=== PATIENT | female | born 1990 | race Caucasian/White ===

== ENCOUNTER 2016-12-05 23:16 | Emergency (ER) | payer BC ==
[2016-12-05 23:39] VITALS: BP 94/57; PULSE 79; TEMP 98.7; BMI 18.5
--- NOTE | 2016-12-05 23:47 | PDOC ---
History of Present Illness <Liz Healy - Last Filed: 12/06/16 00:00> - General History Source: Patient Exam Limitations: No Limitations - History of Present Illness Initial Comments: 12/06/16 00:12 The patient is a 26-year-old female, with no significant past medical history, who presents to the ED with bilateral ear pain. Pt states that the pain is worse in her right ear. A few days ago pt noted right ear was bleeding but that has now resolved. She denies any recent injury or swimming. She does report that she cleans her ears with Q-tips. Pt reports bilateral ear pressure. Pt denies any fever, chills, or cough. <Emily Suarez - Last Filed: 12/06/16 00:20> - General Chief Complaint: Ear Problem Stated Complaint: EAR PROBLEM Time Seen by Provider: 12/05/16 23:36 Past History - Psycho/Social/Smoking Cessation Hx Suicidal Ideation: No Smoking History: Never smoked Have you smoked in the past 12 months: No Information on smoking cessation initiated: No Hx Alcohol Use: No Drug/Substance Use Hx: No <Liz Healy - Last Filed: 12/06/16 00:00> <Emily Suarez - Last Filed: 12/06/16 00:20> - Past Medical History Allergies/Adverse Reactions: Allergies Allergy/AdvReac Type Severity Reaction Status Date / Time No Known Allergies Allergy Verified 12/05/16 23:34 Home Medications: Ambulatory Orders Azithromycin [Zithromax -] 250 mg PO UTDICT #6 tab 12/05/16 Review of Systems - Review of Systems Able to Perform ROS?: Yes Comments:: 12/06/16 00:13 GENERAL/CONSTITUTIONAL: No fever or chills. No weakness. HEAD, EYES, EARS, NOSE AND THROAT: No change in vision. No sore throat. (+) bilateral ear pain/pressure CARDIOVASCULAR: No chest pain or shortness of breath. RESPIRATORY: No cough, wheezing, or hemoptysis. GASTROINTESTINAL: No nausea, vomiting, diarrhea or constipation. GENITOURINARY: No dysuria, frequency, or change in urination. MUSCULOSKELETAL: No joint or muscle swelling or pain. No neck or back pain. SKIN: No rash NEUROLOGIC: No headache, vertigo, loss of consciousness, or change in strength/ sensation. ENDOCRINE: No increased thirst. No abnormal weight change. HEMATOLOGIC/LYMPHATIC: No anemia, easy bleeding, or history of blood clots. ALLERGIC/IMMUNOLOGIC: No hives or skin allergy. <Emily Suarez - Last Filed: 12/06/16 00:20> *Physical Exam - Vital Signs Last Vital Signs Temp Pulse Resp BP Pulse Ox 98.7 F 79 14 94/57 96 12/05/16 23:34 12/05/16 23:34 12/05/16 23:34 12/05/16 23:34 12/05/16 23:34 <Liz Healy - Last Filed: 12/06/16 00:00> - Vital Signs Last Vital Signs Temp Pulse Resp BP Pulse Ox 98.7 F 79 14 94/57 96 12/05/16 23:34 12/05/16 23:34 12/05/16 23:34 12/05/16 23:34 12/05/16 23:34 - Physical Exam Comments: 12/06/16 00:14 GENERAL: Awake, alert, and fully oriented, in no acute distress HEAD: No signs of trauma ENT: nares patent, oropharynx clear. TM EXAM: Left TM is normal in appearance. +Right TM- bulla to the 6 o'clock position with clear effusion. Superior portion of EAC is erythematous. EYES: PERRLA, EOMI, sclera anicteric, conjunctiva clear without exudates. Moist mucosa. NECK: Normal ROM, supple, no lymphadenopathy, JVD, or masses LUNGS: Breath sounds equal, clear to auscultation bilaterally. No wheezes, and no crackles HEART: Regular rate and rhythm, normal S1 and S2, no murmurs, rubs or gallops NEUROLOGICAL: Cranial nerves II through XII grossly intact. Normal speech, normal gait SKIN: Warm, Dry, normal turgor, no rashes or lesions noted <Emily Suarez - Last Filed: 12/06/16 00:20> *DC/Admit/Observation/Transfer - Discharge Dispostion Admit: No <Liz Healy - Last Filed: 12/06/16 00:00> - Attestations Scribe Attestion: 12/06/16 00:20 Documentation prepared by Emily Suarez, acting as medical assistant per diem for Liz Healy MD. <Emily Suarez - Last Filed: 12/06/16 00:20> Diagnosis at time of Disposition: Bullous myringitis of right ear - Discharge Dispostion Disposition: HOME Condition at time of disposition: Stable - Prescriptions Prescriptions: Azithromycin [Zithromax -] 250 mg PO UTDICT #6 tab - Referrals Referrals: Tawana Tilley [Primary Care Provider] - - Patient Instructions Printed Discharge Instructions: DI for Ear Pain-Adult
== END 2016-12-06 00:35 | disposition home or self-care (01) ==
LOC: JER 23:16
DX: H73.011 Bullous myringitis, right ear (principal)
CPT/HCPCS: 84703; 99281-25

== ENCOUNTER 2017-09-21 09:20 | Emergency (ER) | payer BC, OTHER ==
[2017-09-21 09:26] VITALS: BP 123/65; PULSE 73; TEMP 97.5; BMI 19.1
--- NOTE | 2017-09-21 09:52 | PDOC ---
History of Present Illness - General Chief Complaint: Pain Stated Complaint: CHEST PRESSURE/anxious Time Seen by Provider: 09/21/17 09:36 History Source: Patient Exam Limitations: No Limitations - History of Present Illness Initial Comments: 09/21/17 09:46 27 yr female history of depression on Prozac c/o chest pain [place] the train. Pt denies nausea no shortness of breath no fever, has dry cough. Pt states she started to feel anxious after she started having the chest pain. Past History - Past Medical History Allergies/Adverse Reactions: Allergies Allergy/AdvReac Type Severity Reaction Status Date / Time No Known Allergies Allergy Verified 09/21/17 09:26 Home Medications: Ambulatory Orders Fluoxetine HCl [Prozac] 20 mg PO ASDIR 09/21/17 COPD: No Seizures: Yes (anxiety,drepression) - Surgical History Appendectomy: Yes - Suicide/Smoking/Psychosocial Hx Smoking History: Never smoked Have you smoked in the past 12 months: No Information on smoking cessation initiated: No Hx Alcohol Use: No Drug/Substance Use Hx: No Substance Use Type: None Review of Systems - Review of Systems Able to Perform ROS?: Yes Is the patient limited [place]ian proficient: No Constitutional: No: Symptoms Reported HEENTM: No: Symptoms Reported Respiratory: No: Symptoms reported Cardiac (ROS): Yes: Symptoms Reported, Chest Pain ABD/GI: Yes: Indigestion. No: Symptoms Reported Musculoskeletal: No: Symptoms Reported Psychiatric: Yes: Anxiety, Depression. No: Frequent Crying, Stressors, Mood Swings, Change in Appetite *Physical Exam - Vital Signs Last Vital Signs Temp Pulse Resp BP Pulse Ox 97.5 F L 73 18 123/65 98 09/21/17 09:23 09/21/17 09:23 09/21/17 09:23 09/21/17 09:23 09/21/17 09:23 - Physical Exam General Appearance: Yes: Nourished, Appropriately Dressed HEENT: positive: EOMI, [place], TMs Normal, Pharynx Normal. negative: Pharyngeal Erythema, Tonsillar Exudate, Tonsillar Erythema Neck: positive: Supple. negative: Tender, Lymphadenopathy (R), Lymphadenopathy (L) Respiratory/Chest: positive: Lungs Clear, Normal Breath Sounds. negative: Chest Tender Cardiovascular: positive: Regular Rhythm, Regular Rate. negative: Tachycardia, Diastolic Murmur Gastrointestinal/Abdominal: positive: Normal Bowel Sounds, Soft Musculoskeletal: positive: Normal Inspection Extremity: positive: Normal Capillary Refill, Normal Inspection, Normal Range of Motion Integumentary: positive: Normal Color, Dry, Warm Neurologic: positive: Fully Oriented, Alert, Normal Mood/Affect, Normal Response , Motor Strength 11/11 ED Treatment Course - LABORATORY CBC & Chemistry Diagram: 09/21/17 09:50 09/21/17 09:50 Medical Decision Making - Medical Decision Making 09/21/17 10:01 cc: c/o chest pain in the middle of her chest non radiating no nausea or SOB, feels anxious. Pt has history of depression no history of caridac or thyroid disease, denies suicidal or homicidal thoughts. will check labs, EKG give xanax 0.5mg now pt agrees with plan 09/21/17 11:19 labs are WNL will discuss to follow up with PMD tomorrow maalox and motrin given now *DC/Admit/Observation/Transfer Diagnosis at time of Disposition: Atypical chest pain, Reflux esophagitis - Discharge Dispostion Disposition: HOME Condition at time of disposition: Good - Referrals Referrals: Doug Parada DO [Staff Physician] - - Patient Instructions Additional Instructions: follow with the interactive media marketing strategist for further care if you continue to have any burping, heartburn or any other symptoms also follow with your primary care doctor in 1-2 days for follow up bring the copies of lab work done today you can take TUMS which are over the counter as needed for any burping, heartburn or indigestion avoid spicy foods, avoid chocolate, alcohol which may make symptoms worse return to ER for any worsening symptoms - Post Discharge Activity
[2017-09-21] MEDS ORDERED: ALPRAZolam 0.25 MG TABLET PO STA (10:00)
[2017-09-21] MEDS ORDERED: ALPRAZolam 0.25 MG TABLET ONE (10:14)
[2017-09-21 10:26] LABS: HEMATOCRIT 36.2 % (32.4-45.2); HEMOGLOBIN 12.4 GM/dL (10.7-15.3); MCH 32.3 pg (25.7-33.7); MCHC 34.2 g/dl (32.0-36.0); MEAN CELL VOLUME 94.5 fl (80-96); MEAN PLT VOLUME 8.7 fl (7.5-11.1); PLATELET COUNT 205 K/MM3 (134-434); RBC 3.84 M/mm3 (3.60-5.2); RDW 12.8 % (11.6-15.6); WHITE BLOOD COUNT 5.7 K/mm3 (4.0-10.0)
[2017-09-21 10:50] LABS: ALBUMIN 3.7 g/dl (3.4-5.0); ANION GAP 10 (8-16); BLOOD UREA NITROGEN 16 mg/dL (7-18); CALCIUM 8.7 mg/dL (8.5-10.1); CHLORIDE 105 mmol/L (98-107); CO2 23 mmol/L (21-32); CREATININE 0.7 mg/dL (0.55-1.02); GLUCOSE,RANDOM 81 mg/dL (74-106); POTASSIUM 4.1 mmol/L (3.5-5.1); SGOT/AST 13 U/L (15-37); SGPT/ALT 12 U/L (12-78); SODIUM 138 mmol/L (136-145); TOT PROT 7.4 g/dl (6.4-8.2)
[2017-09-21 10:59] LABS: ALK PHOS 45 U/L (45-117); BILIRUBIN,TOTAL 0.5 mg/dL (0.2-1.0)
[2017-09-21] MEDS ORDERED: MAG HYDROX/AL HYDROX/SIMETH 30 ML UNIT-DOSE CUP PO ONE (11:20)
[2017-09-21] MEDS ORDERED: IBUPROFEN 600 MG TABLET (FP) PO ONE ×2 (11:20→11:30)
[2017-09-21] MEDS ORDERED: MAG HYDROX/AL HYDROX/SIMETH 30 ML UNIT-DOSE CUP ONE (11:31)
== END 2017-09-21 11:40 | disposition home or self-care (01) ==
LOC: JERFT 09:20
DX: K21.0 Gastro-esophageal reflux disease with esophagitis (principal); F41.8 Other specified anxiety disorders
CPT/HCPCS: 36415; 80053; 82550; 84443; 84484; 84703; 85027; 99281-25